=== PATIENT | male | born 1955 | race African-American/Black ===

== ENCOUNTER 2019-09-19 07:15 | Outpatient (CLI) | payer OTHER ==
[2019-09-19 09:59] LABS: Hemoglobin 13.8 g/dL (14.0-18.0); Mean Corpuscular HGB CONC 33.6 g/dL (32.0-36.0); Mean Corpuscular Hemoglobin 30.1 pg (27.0-31.0); Mean Corpuscular Volume 89.7 fL (78.0-98.0); Mean Platelet Volume 7.2 fL (7.4-10.4); Platelet Count 175 thou/uL (130-400); RBC Distribution Width 12.2 % (11.5-14.5); Red Blood Cell (RBC) Count 4.57 mill/uL (4.70-6.10)
[2019-09-19 10:04] LABS: INR-International Normal Ratio 0.9; PTT 28.5 SEC (22.9-36.1); Prothrombin Time 12.5 SEC (12.0-14.7)
[2019-09-19 10:19] LABS: Anion Gap 13 mmol/L (10-20); BUN (Urea Nitrogen) 12 mg/dL (8.4-25.7); Calc. Creatinine Clearance 0 mL/min (70-130); Calcium 8.5 mg/dL (7.8-10.44); Carbon Dioxide 23 mmol/L (23-31); Chloride 109 mmol/L (98-107); Estimated GFR-MDRD 88; Glucose 111 mg/dL (80-115); Potassium 3.7 mmol/L (3.5-5.1); Sodium 141 mmol/L (136-145)
--- NOTE | 2019-09-19 23:30 | EKG ---
Test Reason : Blood Pressure : / mmHG Vent. Rate : 084 BPM Atrial Rate : 084 BPM P-R Int : 154 ms QRS Dur : 090 ms QT Int : 368 ms P-R-T Axes : 074 056 069 degrees QTc Int : 434 ms Normal sinus rhythm Normal ECG No previous ECGs available Confirmed by Chin POPE ([id number]) on 09/19/2019 11:29:47 PM Referred By: PARI Confirmed By:Chin POPE
== END 2019-09-19 07:16 | disposition home or self-care (01) ==
LOC: LABBT 07:15
PROVIDERS: ATTEND Surgery
DX: Z01.818 Encounter for other preprocedural examination (principal); M54.12 Radiculopathy, cervical region; M48.02 Spinal stenosis, cervical region
CPT/HCPCS: 80048; 85027; 85610; 85730; 93005; 93010

== ENCOUNTER 2019-09-22 07:28 | Day surgery (SDC) | payer OTHER ==
[2019-09-19 08:39] VITALS: BMI 30.8
[2019-09-22] MEDS ORDERED: Thrombin 5000 UNITS/5 ML VIAL ONE (09:00)
[2019-09-22] MEDS ORDERED: Rocuronium Bromide 10 MG/ML (10ML VIAL) ONE (09:23)
[2019-09-22] MEDS ORDERED: Dexamethasone 20 MG/5 ML VIAL ONE (09:23)
[2019-09-22] MEDS ORDERED: PHENYLEPHRINE-NS 100 MCG/ML 10 ML SYRINGE ONE (09:23)
[2019-09-22] MEDS ORDERED: Glycopyrrolate 0.2 MG/ML 5 ML SYRINGE ONE (09:23)
[2019-09-22] MEDS ORDERED: Lidocaine 1% PF 5 ML VIAL ONE (09:23)
[2019-09-22] MEDS ORDERED: PROPOFOL 200 MG/20 ML VIAL ONE (09:23)
[2019-09-22] MEDS ORDERED: ePHEDrine/0.9% NaCl/PF SYRINGE 50 mg/10 ml ONE (09:23)
[2019-09-22] MEDS ORDERED: Ondansetron PF 4 MG/2 ML Vial ONE (09:23)
[2019-09-22] MEDS ORDERED: Fentanyl 100 MCG/2 ML VIAL ONE ×4 (10:00→14:06)
[2019-09-22] MEDS ORDERED: Dexmedetomidine 200 MCG/2 ML VIAL ONE (10:02)
[2019-09-22] MEDS ORDERED: Ondansetron HCl/PF 4 MG/2 ML Vial IVP PRN (10:35)
[2019-09-22] MEDS ORDERED: Promethazine HCl 25 MG/ML VIAL IM PRN (10:35)
[2019-09-22] MEDS ORDERED: Promethazine HCl 25 MG/ML VIAL SLOW IVP PRN (10:35)
[2019-09-22] MEDS ORDERED: traMADol HCl 50 MG TAB PO PRN (12:46)
[2019-09-22] MEDS ORDERED: Ondansetron PF 4 MG/2 ML Vial IVP PRN (12:46)
[2019-09-22] MEDS ORDERED: Acetaminophen 325 MG TAB PO PRN (12:46)
[2019-09-22] MEDS ORDERED: Morphine 2 MG/ML SYRINGE SLOW IVP PRN (12:46)
[2019-09-22] MEDS ORDERED: Acetaminophen/Codeine 30-300mg Tablet PO PRN (12:46)
[2019-09-22] MEDS: Sodium Chloride 0.9% 1,000 ML IV SCH ×2 (15:40→21:27)
[2019-09-22] MEDS ORDERED: CEFAZOLIN 2 GM in Premix Bag 1 BAG IVPB SCH (16:00)
[2019-09-22] MEDS: CEFAZOLIN 2 GM in Premix Bag 1 BAG IVPB SCH (18:36)
[2019-09-23] MEDS: CEFAZOLIN 2 GM in Premix Bag 1 BAG IVPB SCH ×3 (01:07→18:47)
--- NOTE | 2019-09-23 08:10 | OP ---
DATE OF PROCEDURE: 09/22/2019 DIRECTORY CARRIER: Gen Lind PA-C. LOCATION: OR 12. PREPROCEDURE DIAGNOSIS: Cervical disk extrusion with spinal cord nerve root compression. POSTPROCEDURE DIAGNOSIS: Cervical disk extrusion with spinal cord nerve root compression. PROCEDURES PERFORMED: 1. C4-C5 and C5-C6 anterior diskectomies for decompression of spinal cord nerve roots. 2. Placement of interbody spacers, packed with local bone autograft, obtained from same incision, and allograft C4-C5 and C5-C6 for arthrodesis. 3. Anterior cervical plate and screw fixation, C4, C5, C6. 4. Use of operative microscope for microdissection. DESCRIPTION OF PROCEDURE: After informed consent was obtained from the patient, the patient was brought to the OR. Proper patient, pause, and identification were carried out. He was then placed under excellent general endotracheal anesthesia and positioned supine on the OR table. All appropriate points were padded. We identified the right anterior oblique gauri to allow for approach to C4, C5, C6 segments anteriorly and this region was sterilely cleansed, prepared, and draped. Proper patient, pause, and identification were carried out. The wound was then opened with a combination of sharp, monopolar, and blunt dissection. We proceeded to expose proceeding lateral to the larynx and pharynx and medial to the right carotid sheath. We identified the prevertebral layer of deep cervical fascia. We then turned our attention to retraction of the longus colli muscles. Distraction at C4-C5 then occurred following localization and diskectomy with use of the operative microscope was performed for microdissection. We had excellent decompression of common dural tube and bilateral C5 nerve roots. Spacer was placed, packed with graft. We then turned our attention to C5-C6. Diskectomy was performed at that level, decompression of spinal cord nerve roots and we placed an interbody spacer as well, packed with graft. We then removed the microscope. Anterior cervical plate and screw fixation at C4, C5, C6. Final tightening occurred. Copious irrigation occurred throughout as did maximizing hemostasis. The wound was then closed in anatomic layers over drain. The patient emerged from anesthesia. Job ID: [id number]
[2019-09-23] MEDS: Magnesium Oxide 400 MG TAB PO SCH (09:28)
[2019-09-23] MEDS: tiZANidine HCl 4 MG TAB PO PRN ×2 (09:33→18:47)
--- NOTE | 2019-09-23 11:08 | PRG ---
DATE OF SERVICE: 09/23/2019 Mr. Escoto is postoperative day 1 from C4 through C6 ACDF. He is doing very well with resolution in his arm pain with good strength throughout his upper and lower extremities. His drain output has been 80 mL of sanguinous output overnight. This is a bit high and I would like to leave the drain in. He lives alone. As such, I would like to leave him in the hospital one more day to make sure he is safe to go home. He also has had urinary retention, requiring multiple in-and-out catheterizations, and we will opt now to keep the Scott indwelling for his discharge home tomorrow. Tomorrow, hopefully, his drain will be removed and he will be sent home with a Scott catheter and he will arrange per discussion with me today followup with his primary care provider at the end of next week for Scott removal. He will be taught home-going Scott education. Job ID: [id number]
[2019-09-23] MEDS: Sodium Chloride 0.9% 1,000 ML IV SCH (15:30)
[2019-09-23] MEDS: HYDROcodone/Acetaminophen 7.5/325 mg Tablet PO PRN (18:47)
[2019-09-24] MEDS: HYDROcodone/Acetaminophen 7.5/325 mg Tablet PO PRN (01:38)
[2019-09-24] MEDS: CEFAZOLIN 2 GM in Premix Bag 1 BAG IVPB SCH ×2 (01:38→09:03)
[2019-09-24] MEDS: Sodium Chloride 0.9% 1,000 ML IV SCH (06:33)
[2019-09-24] MEDS: Magnesium Oxide 400 MG TAB PO SCH (09:02)
[2019-09-24 12:18] VITALS: BP 154/76; TEMP 98.1
--- NOTE | 2019-09-26 06:44 | DIS ---
DATE OF ADMISSION: 09/22/2019 DATE OF DISCHARGE: 09/24/2019 Mr. Escoto was admitted to [facility] by Dr. Jerzy Frank on September 22, 2019 with subsequent discharge on September 24, 2019. ADMISSION DIAGNOSIS: Status post anterior cervical discectomy and fusion, cervical spinal stenosis. DISCHARGE DIAGNOSIS: Status post anterior cervical discectomy and fusion, cervical spinal stenosis. HOSPITAL COURSE: Mr. Escoto's hospital course was only complicated by increased drainage through his GUSTABO drain, this ultimately tapered and was removed the morning of September 24 in anticipation of discharge. He does have a Scott in secondary to urinary retention and has plans to follow up with his primary care physician next week for removal and appropriate treatment. Discharged in good condition with 2-week followup planned in the outpatient clinic with Dr. Frank. Job ID: [id number]
== END 2019-09-24 12:50 | disposition home or self-care (01) ==
LOC: SDC 07:28 → SURG A 13:15 → SDC 09-24 12:50
PROVIDERS: ATTEND Surgery
PROC: 0RT30ZZ Resection of Cervical Vertebral Disc, Open Approach (ICD-10-PCS; principal; 2019-09-22)
PROC: 0RG20A0 Fusion of 2 or more Cervical Vertebral Joints with Interbody Fusion Device, Anterior Approach, Anterior Column, Open Approach (ICD-10-PCS; principal; 2019-09-22)
DX: M48.02 Spinal stenosis, cervical region (principal); M50.121 Cervical disc disorder at C4-C5 level with radiculopathy; Z79.899 Other long term (current) drug therapy
CPT/HCPCS: 36416; 76000; C1776; J0690; J1100; J2001; J2405; J2704; J3010; J3490

== ENCOUNTER 2019-09-28 21:34 | Emergency (ER) | payer OTHER, SELFPAY ==
--- NOTE | 2019-09-29 02:14 | CON ---
DATE OF CONSULTATION: 09/28/2019 CHIEF COMPLAINT: Postoperative cervical wound drainage. HISTORY OF PRESENT ILLNESS: Mr. Graham is a pleasant 63-year-old gentleman who is 6 days postop after undergoing a C4-C6 ACDF with Dr. Frank on 09/22/2019. He reports he presents to the emergency department tonight with reports of drainage from his wound that has been present over the last 6 days since his surgery. He states that it has not been significant, but rather steady oozing drainage that is watery and red tinged. He denies any recent fevers or chills. He denies any associated pain in the area of the drainage. He states that he has been doing overall very well postoperatively with some discomfort in the back of his neck; however, he states that the left upper extremity pain and symptoms he was having before surgery have resolved, so he is very pleased. He has been swallowing without difficulties. He has not been on antibiotics since discharge from the hospital. PHYSICAL EXAMINATION: GENERAL: The patient is awake, alert and appropriate. Only minimal dysphonia present. NECK: The patient has full range of motion of his head and neck. EXTREMITIES: He has good strength throughout his upper and lower extremities bilaterally. SKIN: His anterior cervical incision is clean, dry, and intact without any signs of infection. Steri-Strips on the right half of the incision were removed in the emergency department for evaluation. There is no incisional dehiscence or drainage. The area of concern is a small punctate opening inferior to the incision where the drain was previously located. There is no significant drainage from the wound, however, serosanguineous drainage is expressed with palpation. There is surrounding induration, but no significant erythema or signs of infection. No tenderness to palpation. IMPRESSION: 1. Six days status post C4-C6 anterior cervical discectomy and fusion for cervical stenosis and cervical radiculopathy. 2. Postoperative cervical wound drainage. PLAN: At this time, I have discussed this case with Dr. Frank. He was provided with a picture of the wound by cell phone. Plan at this time is to place pressure dressings over the wound. The wound is very small and punctate and does not look infected. No suture indicated at this time. Likely the wound will continue to heal over the next several days and close up. We will place patient on prophylactic antibiotics. He was provided with a prescription for Keflex 500 mg q.6 hours x14 days. We will follow up with him in clinic in 1 week on Thursday, October 05, 2019. The patient will call sooner with any questions or concerns. The patient is . Job ID: [id number]
== END 2019-09-28 22:58 | disposition home or self-care (01) ==
LOC: ERS 21:34
DX: M96.830 Postprocedural hemorrhage of a musculoskeletal structure following a musculoskeletal system procedure (principal)
CPT/HCPCS: 99283

== ENCOUNTER 2019-11-07 13:53 | Outpatient (CLI) | payer OTHER ==
--- NOTE | 2019-11-07 14:42 | RAD ---
CERVICAL SPINE SERIES 3 VIEWS: HISTORY: Neck pain. FINDINGS: Vertebral bodies are normal in height. There is anterior cervical fusion extending from C4 to C6. D egenerative osteophytes and disk narrowing are seen at C6-7 and C7-T1. Markers of disk implants are within the confines of the disk levels. IMPRESSION: Postop changes of the spine. POS: [facility]
== END 2019-11-07 13:54 | disposition home or self-care (01) ==
LOC: TBSIIMAG 13:53
PROVIDERS: ATTEND Surgery
DX: M54.2 Cervicalgia (principal); Z98.890 Other specified postprocedural states
CPT/HCPCS: 72040

== ENCOUNTER 2020-04-26 08:01 | Outpatient (CLI) | payer OTHER | END 2020-04-26 08:02 | disposition home or self-care (01) | PROVIDERS: ATTEND Nurse Practitioner Family | DX: M54.12 Radiculopathy, cervical region (principal) ==

== ENCOUNTER 2022-04-29 07:41 | Emergency (ER) | payer OTHER | END 2022-04-29 09:42 | disposition home or self-care (01) | LOC: ERS 07:41 | DX: M54.12 Radiculopathy, cervical region (principal) | CPT/HCPCS: 72125 ==